=== PATIENT | female | born 1950 | race Caucasian/White ===

== ENCOUNTER → 2017-02-28 | Outpatient (CLI) | payer OTHER ==
[~2017-02-28] MED LIST: CEFTRIAXON1 GM/50 ML IV; DOXYCYCLINE 10100 MG PO; HUMULINU500 SUBQ; KOMBIGLYZE XR1 EAC1 PO; LEVOTHYROXIN0.112 M1 PO; LISINOPRIL-HCT1 EAC1 PO; NEXIUM40 MG PO; PERCOCET 7.5-31 EACH PO; PROBIOTIC1 EAC1 PO; SIMVASTATIN40 MG PO; VANCO 1 GR1 GM/250 M IVPB
== END ==
LOC: RAD 15:44
DX: M19.071 Primary osteoarthritis, right ankle and foot (principal); M20.11 Hallux valgus (acquired), right foot

== ENCOUNTER 2017-03-22 16:39 | Inpatient (IN) | payer OTHER ==
[~2017-03-22] VITALS: Ht 175.3 cm; Wt 138.3 kg
--- NOTE | ~2017-03-22 | O ---
[facility] [place] [address] OPERATIVE REPORT Name: MARISSA RODRIGUEZ Room #: 428-P ADM IN M.R.#: [id number] Admission: 03/22/17 Attend Phys: Destin Duarte MD Discharge: Date of : 48 Report #: [id number] THIS REPORT FOR: //name// CC: Destin Duarte Rafael Almaguer DATE OF SERVICE: 03/24/2017 PREOPERATIVE DIAGNOSIS: Right foot gangrene, great toe. POSTOPERATIVE DIAGNOSIS: Right foot gangrene, great toe. PROCEDURE: Right foot first ray amputation. SURGEON: Destin Duarte MD FINISHING AREA OPERATOR: JOE Olvera ANESTHESIA: General. ESTIMATED BLOOD LOSS: Minimal. DRAINS: Kenia drain placed. TOURNIQUET TIME: 25 minutes. DESCRIPTION OF PROCEDURE: The patient was brought to the operating room where she was placed under general anesthesia. Once under adequate general anesthesia, her right lower extremity was prepped and draped in a sterile manner. Extremity was elevated and tourniquet placed to 300 mmHg. A racquet type incision was then made about the great toe distally. There was abundant purulence which did emanate from the wound and cultures were taken from this. The first metatarsal was then completely exposed sharply with a 10 blade and subsequently a sagittal saw was used to transect the first metatarsal, any soft tissue was sharply and the first ray was then completely removed. The wound was then irrigated copiously and the skin flaps were debrided to good healthy appearing tissue. The wound was irrigated once again copiously and closed with 2-0 nylon suture in a simple stitch manner. This was done over a Kenia drain. The wound was then dressed with Xeroform, 4 x 4s, and sterile soft compressive dressing was placed. Tourniquet was let down approximately 25 minutes. There were no complications from the procedure. The patient tolerated the procedure well and was to the recovery room without incident. <ELECTRONICALLY SIGNED> By: Destin Duarte MD 03/27/17 1041 0815 0844 Destin Duarte MD /nt
--- NOTE | ~2017-03-22 | EKG ---
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 : 1950 Requested By: Destin Duarte Order Number: [id number] MD: Jesu sManuel Ruth Measurements Intervals [place] Rate: 99 P: 34 ME: 136 QRS: -22 QRSD: 95 T: 87 QT: 342 QTc: 439 Interpretive Statements Sinus tachycardia Atrial premature complexes Nonspecific ST segment abnormality No previous ECG available for comparison Electronically Signed On 03-23-2017 12:44:15 CDT by Jesus Manuel Ruth [email or web address] <ELECTRONICALLY SIGNED> By: Jesus Manuel Ruth MD, [facility] 03/23/17 1244 D: [id number] Jesus Manuel Ruth MD, FAC /EPI
--- NOTE | ~2017-03-22 | S ---
[facility] [place] [address] SURGICAL PATH RPT PROCEDURE Name: MARISSA RODRIGUEZ Room #: 428-P ADM IN M.R.#: [id number] Admission: 03/22/17 Date of : 48 Discharge: Report #: [id number] Path Case #: [id number] PATHOLOGY REPORT COLLECTION DATE: 03/24/2017 RECEIVED DATE: 03/24/2017 SUBMITTING PHYS: Dr. Destin Duarte OTHER PHYS: Dr. Rafael Almaguer SPECIMEN(S) RECEIVED: A.Gangrenous right great toe * * * * * * * * * * * * FINAL DIAGNOSIS: Toe, gangrenous right great toe, amputation: - Ulceration along with gangrenous necrosis and abscess formation extending into underlying bone. - Bone at surgical margin showing reactive changes. - Acute inflammation identified within subcutaneous tissue at margin. (IUV:jade; 03/27/2017) PATHOLOGIST: Brianna Oreilly M.D. REPORT ELECTRONICALLY SIGNED BY: Brianna Oreilly M.D. DATE/TIME: 03/27/2017 16:57 * * * * * * * * * * * * GROSS PATHOLOGY: The specimen is received in formalin, labeled "Mitch gangrenous right great toe" and consists of a great toe transected through the mid metatarsal bone that measures 12.4 cm proximaldistal and ranging in diameter from 2.5 cm to 4.0 cm. There is skin present, distally, circumferential, and along the medial aspect of specimen. The dorsal, lateral, and plantar aspect of the specimen is void of skin. The distal dorsal skin is markedly necrotic with a dark brown black mummification artifact. At the medial proximal skin is an elevated and crusted brown lesion that measures 2.2 cm. The distal plantar aspect is scaly with skin sloughing. The necrosis and lesion involve the cutaneous margins. The tendinous tissue overlying the proximal phalanx, dorsally, is necrotic. The dorsal cutaneous margin is inked blue and the plantar block. The transected bone margin is also inked black. Sectioning the crusted lesion, medially reveals marked hyperkeratotic parenchyma. No other lesions or masses are identified. Classroom Instructional Aide sections as follows: A1 dorsal and plantar margins, perpendicular A2 crusted lesion medial proximal toe A3 metatarsal margin, section perpendicular to transection, decaled [address] [place] [address] SURGICAL PATH RPT PROCEDURE Name: MARISSA RODRIGUEZ Room #: 428-P ADM IN M.R.#: [id number] Admission: 03/22/17 Date of : 48 Discharge: Report #: [id number] Path Case #: [id number] (ALIS; 03/24/2017) CLINICAL HISTORY: Gangrene foot INITIAL CPT CODE(S): A; 50951, 30935 Professional services performed by [facility] at [facility] [address] [place] [address] Technical services performed by [facility] at [address] [place] [address], [address], [place] [address]. [facility] [address] [place] [address] PHONE: [phone] DIRECTOR: Jg Barclay M.D. * * * END OF REPORT * * *
--- NOTE | ~2017-03-22 | EKG ---
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 : 1950 Requested By: Destin Duarte Order Number: [id number] MD: Efren Hernandez Measurements Intervals [place] Rate: 90 P: 45 NH: 140 QRS: -19 QRSD: 101 T: 126 QT: 362 QTc: 443 Interpretive Statements Sinus rhythm, APCs Abnormal R-wave progression, early transition LVH with secondary repolarization abnormality Compared to ECG 03/22/2017 17:52:56 Left ventricular hypertrophy now present Early repolarization now present Electronically Signed On 03-25-2017 12:38:38 CDT by Efren Hernandez [email or web address] <ELECTRONICALLY SIGNED> By: Efren Hernandez MD 03/25/17 1238 0648 0648 Efren Hernandez MD /[facility]
--- NOTE | ~2017-03-22 | HC ---
[facility] [place] [address] CONSULTATION Name: MICHAELMARISSA JOHNSON Room #: 428-P [facility] IN M.R.#: [id number] Admission: 03/22/17 Attend Phys: Destin Duarte MD Discharge: Date of : 48 Report #: [id number] THIS REPORT FOR: //name// CC: Destin Etienneal Almaguer DATE OF SERVICE: 03/23/2017 CHIEF COMPLAINT: Gangrene of the right great toe. HISTORY OF PRESENT ILLNESS: This is a 66-year-old female patient with a history of diabetes mellitus. She developed a cellulitis of her foot. She was noted on x-ray to have a metal foreign object, likely a needle, she underwent removal of such needle and has developed progressive infection and necrosis of the right great toe. She is admitted to the hospital for further evaluation and likely will require amputation of the first toe and first metatarsal of the right foot. She has had no prior amputative surgeries. She denies significant pain at this point in time. PAST MEDICAL HISTORY: Positive for diabetes, hypertension, tonsillectomy, gastroesophageal reflux, and peripheral neuropathy. FAMILY HISTORY: Noncontributory. SOCIAL HISTORY: Nonsmoker significant alcohol use. REVIEW OF SYSTEMS: CONSTITUTIONAL: The patient denies fever, chills, or weight loss. NEUROLOGIC: The patient does have numbness related to her neuropathy. Denies focal weakness. ENT: The patient denies earache, nasal drainage, or sore throat. CARDIOVASCULAR: The patient denies chest pain, palpitations, or diaphoresis. PULMONARY: The patient denies cough or shortness of breath. GASTROINTESTINAL: The patient denies nausea, vomiting, diarrhea, or abdominal pain. ORTHOPEDIC: The patient notes necrosis of the right great toe. Denies other pain; however, or swelling. Other systems and 12-point review of systems are negative. PHYSICAL EXAMINATION: VITAL SIGNS: The patient's vital signs at this time include pulse rate 97, blood pressure 151/77, temperature , and respiratory rate of 18. GENERAL: This is a well-developed, well-nourished female patient, appears to be in no distress. HEENT: Head normocephalic. Nose and throat are clear. [address] [address] CONSULTATION Name: MARISSA RODRIGUEZ Room #: 428-P [facility] IN .R.#: [id number] Admission: 03/22/17 Attend Phys: Destin Duarte MD Discharge: Date of : 48 Report #: [id number] NECK: Supple. LUNGS: Clear. HEART: Regular. ABDOMEN: Soft. Bowel sounds present. EXTREMITIES: Examination of the lower extremities demonstrate 2+ edema. She has easily palpable dorsalis pedis and posterior tibialis pulses bilaterally. She has gangrene of the great toe, appears to be some evidence of bony exposure involving the MTP joint medially. The toe itself is cool. The remainder of the foot is warm, pink and dry. LABORATORY DATA: Includes arterial Doppler studies, which showed no flow limiting stenosis in either lower extremity. MRI of the right foot demonstrates soft tissue gas along the great toe with associated fluid and extensor tenosynovitis, septic arthritis of the IP joint, but no evidence of osteomyelitis. Laboratory data includes sodium 130, potassium 3.5, chloride 94, CO2 of 29, BUN 23, creatinine 1.4, glucose 521, and calcium is 8.8. White blood cell count 9.0, the hemoglobin 12.2, hematocrit of 35.7, and platelet count 168,000. Sed rate is 90. CLINICAL IMPRESSION: 1. Gangrene of right great toe, status post removal of metallic foreign body. 2. Diabetes mellitus with peripheral neuropathy. 3. Septic arthritis, right first metatarsophalangeal. RECOMMENDATIONS: At this point in time, I discussed with the patient in detail that I do not feel that the toe is salvageable, it is cool and likely entirely necrotic. She is scheduled for surgical intervention and with which I agree. Her vascularity seems to be normal. She should be able to support healing without too much difficulty. We will continue to follow her postoperative. I appreciate being asked to see her in consultation. <ELECTRONICALLY SIGNED> By: Jericho Gibbs MD 03/24/1722 1 4 Jericho Gibbs MD /nt
--- NOTE | ~2017-03-22 | HC ---
[facility] [place] [address] CONSULTATION Name: MARISSA RODRIGUEZ Room #: 428-P ADM IN M.R.#: [id number] Admission: 03/22/17 Attend Phys: Destin Duarte MD Discharge: Date of : 48 Report #: [id number] THIS REPORT FOR: //name// CC: Destin Almaguer DATE OF SERVICE: 03/23/2017 REASON FOR CONSULTATION: I was asked to evaluate concerning right great toe gangrene. HISTORY OF PRESENT ILLNESS: The patient was a 66-year-old diabetic who has peripheral neuropathy and vasculopathy. She was diagnosed several weeks ago with a foreign body in her right first toe. Infection set in and she was seen by Dr. Duarte who on 03/13/2017 performed incision and extraction of the foreign body. Postoperatively, she has developed increased pain and swelling with discoloration of the distal toe. She has had pain growing up her leg including her calf and medial thigh. Temperature has been up to 100.8 degrees. She has had chills. Some nausea. Blood glucose levels have run high, greater than 400. ALLERGIES: INCLUDE PENICILLIN, SULFA, CODEINE. MEDICATIONS: As noted on her MAR, now on vancomycin, aztreonam pending culture results. PAST MEDICAL HISTORY: Diabetes, hypertension, thyroidectomy, tonsillectomy, gastroesophageal reflux, gastric ulcer, peripheral neuropathy. She has had a previous diagnosis of MRSA, unclear exactly when. FAMILY HISTORY: Noncontributory. SOCIAL HISTORY: Nonsmoker, no significant alcohol intake. REVIEW OF SYSTEMS: No cardiopulmonary, GI or complaints. PHYSICAL EXAMINATION: VITAL SIGNS: The patient was afebrile. Maximum temperature is 100.8 degrees, hemodynamically stable. GENERAL: She was alert and cooperative. HEENT: Unremarkable. CHEST: Clear. HEART: Regular. ABDOMEN: Soft and nontender. EXTREMITIES: Pulses in the groin and popliteal were unremarkable. Pulses in the foot were normal. She had gangrene involving the right first toe with blue [facility] [address] [place] [address] CONSULTATION Name: MICHAELMARISSA ALEX Room #: [facility]- ADM IN M.R.#: [id number] Admission: 03/22/17 Attend Phys: Destin Duarte MD Discharge: Date of : 48 Report #: [id number] discoloration of the distal aspect of the toe. Previous surgical incision was intact. LABORATORY STUDIES: MRI scan showed fluid in the IP joint along with soft tissue fluid and tenosynovitis. Ultrasound of the arterial blood flow, no significant obstruction identified. Creatinine 1.4. Hemoglobin 12, WBC 9, sedimentation rate 90. IMPRESSION: A 66-year-old with diabetic foot infection and gangrene, polymicrobial infection, most likely. Recommend surgical resection with amputation of the toe. Dr. Duarte will determine the extent of the amputation depending upon findings at surgery. She has allergies to multiple antibiotics including penicillin with hives. We will plan to continue with vancomycin and aztreonam pending further microbiology reports. This was discussed with the patient and nursing staff. We will monitor blood glucose and adjust accordingly per family practice recommendations. Anticipate surgery tomorrow. Duration of antibiotics will dependent upon findings at surgery. By: [id number] Guilherme Ring MD /nt
[~2017-03-22 16:39] MED LIST changes: -CEFTRIAXON1 GM/50 ML IV; -VANCO 1 GR1 GM/250 M IVPB
[2017-03-22 17:00] VITALS: BP 129/62
[2017-03-22 18:26] LABS: HEMATOCRIT 35.7 % (37.0-47.0); HEMOGLOBIN 12.2 gm/dL (12.0-15.0); MCH 31.2 pg (26.0-34.0); MCHC 34.2 g/dL (28.0-37.0); MCV 91.3 fL (80.0-100.0); RBC 3.91 mil/uL (4.20-5.00); RDW 12.9 % (10.5-14.5)
[2017-03-22 18:41] LABS: CALCIUM 8.8 mg/dL (8.5-10.1); CREATININE 1.4 mg/dL (0.6-1.0); POTASSIUM 3.5 mmol/L (3.5-5.1)
[2017-03-22 20:18] VITALS: BP 129/54
[2017-03-22 22:01] LABS: URINE BILIRUBIN NEGATIVE (Negative); URINE BLOOD TRACE (Negative); URINE COLOR YELLOW; URINE GLUCOSE-RANDOM* 3+ (Negative); URINE KETONES NEGATIVE (Negative); URINE LEUKOCYTES-REFLEX NEGATIVE (Negative); URINE PROTEIN (DIPSTICK) TRACE (Negative); URINE UROBILINOGEN 0.2 E.U./dl (0.2-1.0)
[2017-03-23 01:02] VITALS: BP 130/57
[2017-03-23 03:54] VITALS: BP 13/60; BP 130/60
[2017-03-23 09:22] VITALS: BP 153/83
[2017-03-23 15:53] VITALS: BP 115/52
[2017-03-23 20:00] VITALS: BP 151/77
[2017-03-24] VITALS (8 sets, daily range): BP systolic 105–147; BP diastolic 49–80
[2017-03-25 04:49] VITALS: BP 127/63
[2017-03-25 06:14] LABS: HEMOGLOBIN 12.1 gm/dL (12.0-15.0)
[2017-03-25 06:15] LABS: HEMATOCRIT 35.9 % (37.0-47.0)
[2017-03-25 06:25] LABS: POTASSIUM 3.2 mmol/L (3.5-5.1)
[2017-03-25 09:20] VITALS: BP 125/69
[2017-03-25 16:30] VITALS: BP 132/65
[2017-03-25 20:00] VITALS: BP 132/60
[2017-03-26 04:00] VITALS: BP 136/66
[2017-03-26 08:00] VITALS: BP 168/78
[2017-03-26 15:24] VITALS: BP 123/64
[2017-03-26 19:17] VITALS: BP 128/77
[2017-03-27 04:07] VITALS: BP 146/74
[2017-03-27 07:30] VITALS: BP 158/87
[2017-03-27 15:30] VITALS: BP 129/58
[2017-03-27 20:00] VITALS: BP 130/53
[2017-03-28 04:00] VITALS: BP 134/65
[2017-03-28 07:30] VITALS: BP 155/78
[2017-03-28] MEDS ORDERED: CEFTRIAXON1 GM/50 ML IV (14:06)
[2017-03-28] MEDS ORDERED: VANCO 1 GR1 GM/250 M IVPB (14:06)
== END 2017-03-28 16:13 | DRG 256 ==
LOC: 4E 16:39
PROVIDERS: Orthopaedic Surgery Foot and Ankle Surgery
PROC: 0Y6P0Z0 Detachment at Right 1st Toe, Complete, Open Approach (ICD-10-PCS; principal; 2017-03-24)
PROC: B548ZZA Ultrasonography of Superior Vena Cava, Guidance (ICD-10-PCS; 2017-03-27)
PROC: 02HV33Z Insertion of Infusion Device into Superior Vena Cava, Percutaneous Approach (ICD-10-PCS; 2017-03-27)
DX: E11.52 Type 2 diabetes mellitus with diabetic peripheral angiopathy with gangrene (principal); N17.9 Acute kidney failure, unspecified; L03.115 Cellulitis of right lower limb; M86.172 Other acute osteomyelitis, left ankle and foot; M00.9 Pyogenic arthritis, unspecified; M86.8X7 Other osteomyelitis, ankle and foot; I10 Essential (primary) hypertension; E78.5 Hyperlipidemia, unspecified; K21.9 Gastro-esophageal reflux disease without esophagitis; B95.62 Methicillin resistant Staphylococcus aureus infection as the cause of diseases classified elsewhere; B96.4 Proteus (mirabilis) (morganii) as the cause of diseases classified elsewhere; E11.42 Type 2 diabetes mellitus with diabetic polyneuropathy; E89.0 Postprocedural hypothyroidism; E87.6 Hypokalemia; I49.9 Cardiac arrhythmia, unspecified; E11.69 Type 2 diabetes mellitus with other specified complication; Z88.0 Allergy status to penicillin; Z88.5 Allergy status to narcotic agent; Z79.4 Long term (current) use of insulin; Z79.899 Other long term (current) drug therapy; Z88.2 Allergy status to sulfonamides; Z82.49 Family history of ischemic heart disease and other diseases of the circulatory system
CPT/HCPCS: 10183; 10783; 27000; 50010; 50101; 50386; 56527; 57091; 62110; 62900; 70005

== ENCOUNTER → 2017-06-29 | Outpatient (CLI) | payer OTHER ==
[~2017-06-29] MED LIST changes: +CEFTRIAXON1 GM/50 ML IV; +VANCO 1 GR1 GM/250 M IVPB
== END ==
LOC: HYPER 06:37
DX: T87.89 Other complications of amputation stump (principal); E11.621 Type 2 diabetes mellitus with foot ulcer; L97.512 Non-pressure chronic ulcer of other part of right foot with fat layer exposed; E78.5 Hyperlipidemia, unspecified; I10 Essential (primary) hypertension; K21.9 Gastro-esophageal reflux disease without esophagitis; E66.9 Obesity, unspecified; Z68.42 Body mass index [BMI] 45.0-49.9, adult; Z85.9 Personal history of malignant neoplasm, unspecified; Z86.14 Personal history of Methicillin resistant Staphylococcus aureus infection; Z87.891 Personal history of nicotine dependence; Z72.89 Other problems related to lifestyle; Y83.5 Amputation of limb(s) as the cause of abnormal reaction of the patient, or of later complication, without mention of misadventure at the time of the procedure

== ENCOUNTER → 2017-07-20 | Outpatient (CLI) | payer OTHER | LOC: HYPER 06:44 | DX: T87.81 Dehiscence of amputation stump (principal); E11.621 Type 2 diabetes mellitus with foot ulcer; L97.512 Non-pressure chronic ulcer of other part of right foot with fat layer exposed; I10 Essential (primary) hypertension; E78.5 Hyperlipidemia, unspecified; K21.9 Gastro-esophageal reflux disease without esophagitis; E66.9 Obesity, unspecified; Z68.42 Body mass index [BMI] 45.0-49.9, adult; Z85.9 Personal history of malignant neoplasm, unspecified; Z86.14 Personal history of Methicillin resistant Staphylococcus aureus infection; Z89.411 Acquired absence of right great toe; Z87.891 Personal history of nicotine dependence; Z72.89 Other problems related to lifestyle; Y83.5 Amputation of limb(s) as the cause of abnormal reaction of the patient, or of later complication, without mention of misadventure at the time of the procedure ==

== ENCOUNTER → 2017-08-03 | Outpatient (CLI) | payer OTHER | LOC: HYPER 06:31 | DX: T87.81 Dehiscence of amputation stump (principal); E11.621 Type 2 diabetes mellitus with foot ulcer; L97.512 Non-pressure chronic ulcer of other part of right foot with fat layer exposed; E66.9 Obesity, unspecified; Z68.42 Body mass index [BMI] 45.0-49.9, adult; L03.116 Cellulitis of left lower limb; E78.5 Hyperlipidemia, unspecified; I10 Essential (primary) hypertension; K21.9 Gastro-esophageal reflux disease without esophagitis; Z87.891 Personal history of nicotine dependence; Z72.89 Other problems related to lifestyle; Y83.5 Amputation of limb(s) as the cause of abnormal reaction of the patient, or of later complication, without mention of misadventure at the time of the procedure ==

== ENCOUNTER → 2017-08-29 | Outpatient (CLI) | payer OTHER | LOC: HYPER 08-24 08:56 | DX: T87.81 Dehiscence of amputation stump (principal); E11.621 Type 2 diabetes mellitus with foot ulcer; L97.512 Non-pressure chronic ulcer of other part of right foot with fat layer exposed; E66.9 Obesity, unspecified; Z68.42 Body mass index [BMI] 45.0-49.9, adult; E78.5 Hyperlipidemia, unspecified; K21.9 Gastro-esophageal reflux disease without esophagitis; Z85.828 Personal history of other malignant neoplasm of skin; Z87.891 Personal history of nicotine dependence; Y83.5 Amputation of limb(s) as the cause of abnormal reaction of the patient, or of later complication, without mention of misadventure at the time of the procedure ==

== ENCOUNTER → 2019-07-04 | Outpatient (CLI) | payer OTHER | LOC: ULTRA 09:19 | DX: K76.0 Fatty (change of) liver, not elsewhere classified (principal) ==

== ENCOUNTER → 2019-08-12 | Outpatient (CLI) | payer OTHER ==
[~2019-08-12] VITALS: Ht 177.8 cm; Wt 156.5 kg
[~2019-08-12] MED LIST changes: +HUMALOG100 UNIT/1 SUBQ; +LANTUS SOL100 UNIT/1 SUBQ; +LEVOXYL150 MCG PO; +OMEPRAZOLE 20 M20 M1 PO
--- NOTE | 2019-08-13 16:07 | PATH ---
[facility] [place] [address] [place] [address] PATHOLOGY RPT PROCEDURE Name: MARISSA RODRIGUEZ Room #: REG [facility] Tu.#: [id number] Admission: 08/12/19 Date of : 48 Discharge: Report #: [id number] Path Case #: [id number] [facility] Accession Number: [id number] . 01 Material submitted: . PART A: stomach - RANDOM GASTRIC BX'S PART B: stomach - GASTRIC POLYPS PART C: cecum - POLYP AT CECUM PART D: colon - POLYP AT ASCENDING COLON. Modifiers: ascending PART E: colon - POLYP AT TRANSVERSE COLON X2. Modifiers: transverse PART F: sigmoid colon - POLYP AT SIGMOID COLON X5 . 01 Clinical history: . Pre-OP DX: Abdominal pain Post-OP DX: Hiatal hernia, gastric polyps, colon polyps . 02 Diagnosis: A. Gastric mucosa, random gastric to rule out H. pylori, endoscopic biopsy: - Mild chronic gastritis with features of reactive gastropathy. - Negative for intestinal metaplasia or atrophy. - Negative for Helicobacter pylori (properly controlled immunohistochemical stain performed). . B. Polyps, gastric polyps, endoscopic biopsy: - Fundic gland polyps. - Negative for dysplasia. . C. Polyp, at cecum, endoscopic biopsy: - Tubular adenoma. - Negative for high-grade dysplasia. . D. Polyp, at ascending colon, endoscopic biopsy: - Tubular adenoma. - Negative for high-grade dysplasia. . E. Polyp x2, at transverse colon, endoscopic biopsy: - Tubular adenoma identified in multiple fragments. - Negative for high-grade dysplasia. . F. Polyps x5, at sigmoid colon, endoscopic biopsy: - Tubular adenoma identified in multiple fragments without high-grade dysplasia. - Hyperplastic polyp identified in 2 fragments without dysplasia. . (IUV:hat block bench hand; 08/13/2019) MBR 08/13/[address] [address] PATHOLOGY RPT PROCEDURE Name: MARISSA RODRIGUEZ Room #: REG CLI M.#: [id number] Admission: 08/12/19 Date of : 48 Discharge: Report #: [id number] Path Case #: [id number] . 02 Electronically signed: . Brianna Oreilly MD, Pathologist NPI- [id number] . 01 Gross description: . A. Received in formalin labeled "Marissa Rodriguez random gastric BX's," and additionally labeled on the requisition as "to rule out H. pylori," are 5 segments of gonzalez soft tissue measuring 1.5 x 0.9 x 0.3 cm in aggregate dimensions and ranging from 0.3 to 0.6 cm in maximum dimension. The specimen is submitted entirely in cassette A1. . B. Received in formalin labeled "Marissa Rodriguez, gastric polyps," are 2 segments of gonzalez soft tissue measuring 1.0 x 0.3 x 0.2 cm in aggregate dimensions and ranging from 0.4 to 0.6 cm in maximum dimension. The specimen is submitted entirely in cassette B1. . C. Received in formalin labeled "Marissa Rodriguez, polyp at cecum," is a 0.9 x 0.5 x 0.5 cm polypoid piece of gonzalez soft tissue with a stalk measuring 0.7 cm in length and 0.5 cm in diameter. The margin of the stalk is inked and the tissue is sectioned perpendicular to the margin and submitted entirely in cassette C1. . D. Received in formalin labeled "Marissa Rodriguez, polyp at ascending colon," is a single segment of gonzalez soft tissue measuring 0.5 cm in maximum dimension. The specimen is entirely submitted in cassette D1. . E. Received in formalin labeled "Marissa Rodriguez, polyp at transverse colon," and additionally labeled on the requisition as "x2," are 5 segments of gonzalez soft tissue measuring 2.5 x 1.2 x 0.3 cm in aggregate dimensions and ranging from 0.2 to 2.3 cm in maximum dimension. The specimen is submitted entirely in cassette E1. . F. Received in formalin labeled "Marissa Rodriguez, polyp at sigmoid colon," and additionally labeled on the requisition as "x5," are multiple segments of gonzalez soft tissue measuring 2.0 x 1.1 x 0.2 cm in aggregate dimensions. The specimen is filtered and entirely submitted in cassette F1. (TSD; 08/12/2019) TOB/TOB 08/12/2019 1944 Local . 02 Pathologist provided ICD-10: K29.50, K31.9, K31.7, D12.0, D12.2, D12.3, D12.5, K63.5 . 02 CPT . 845805, 615545, 515653, 454721, 884448, 806865, Y08106 Specimen Comment: A courtesy copy of this report has been sent to [phone], [phone] [address] [place] [address] PATHOLOGY RPT PROCEDURE Name: MICHAELMARISSAJANA JOHNSON Room #: REG [facility] M.Miriam.#: [id number] Admission: 08/12/19 Date of : 48 Discharge: Report #: [id number] Path Case #: [id number] Specimen Comment: [id number] Specimen Comment: Report sent to / DR OWENS Performed at: 01 [facility] [address], [place], [place] [id number] MD Elio Li MD Phone: [phone] Performed at: 02 [facility] [place], [place] [address] MD Brianna Oreilly MD Phone: [phone]
== END ==
LOC: GI 00:01
DX: Z12.11 Encounter for screening for malignant neoplasm of colon (principal); D12.0 Benign neoplasm of cecum; D12.2 Benign neoplasm of ascending colon; D12.3 Benign neoplasm of transverse colon; D12.5 Benign neoplasm of sigmoid colon; K57.30 Diverticulosis of large intestine without perforation or abscess without bleeding; R10.13 Epigastric pain; K64.8 Other hemorrhoids; K29.50 Unspecified chronic gastritis without bleeding; K31.9 Disease of stomach and duodenum, unspecified; K31.7 Polyp of stomach and duodenum; K21.9 Gastro-esophageal reflux disease without esophagitis; K44.9 Diaphragmatic hernia without obstruction or gangrene; I10 Essential (primary) hypertension; E78.00 Pure hypercholesterolemia, unspecified; E11.9 Type 2 diabetes mellitus without complications; E07.9 Disorder of thyroid, unspecified; G62.9 Polyneuropathy, unspecified; Z98.890 Other specified postprocedural states; Z79.899 Other long term (current) drug therapy; Z88.2 Allergy status to sulfonamides; Z87.19 Personal history of other diseases of the digestive system; Z88.0 Allergy status to penicillin; Z88.6 Allergy status to analgesic agent; Z87.891 Personal history of nicotine dependence; Z85.828 Personal history of other malignant neoplasm of skin; Z79.4 Long term (current) use of insulin
CPT/HCPCS: 62110; 62900

== ENCOUNTER 2020-08-21 05:18 | Inpatient (IN) | payer OTHER ==
[~2020-08-21] VITALS: Ht 177.8 cm; Wt 148.0 kg
--- NOTE | ~2020-08-21 | EMS ---
[facility] [address] [place] [address] EMS Patient Care Report Name: MARISSA RODRIGUEZ Room #: 170-6 ADM IN M.R.#: [id number] Admission: 08/21/20 Attend Phys: Rafael Almaguer MD Discharge: Date of : 48 Report #: [id number] THIS REPORT FOR: //name// Report Transmitted: 08/21/2020 09:42 EMS Care Summary [place], [place]/[facility] Incident [id number] @ 08/21/2020 04:40 Incident Location [address] [place] [id number] Patient MARISSA RODRIGUEZ Female, 69 Years 1950 Patient Address Patient History Morbid Obesity,Pressure Ulcer, Patient Allergies Penicillin allergy,Sulfa, Patient Medications Insulin, Chief Complaint INCREASING WEAKNESS Disposition Transported No Lights/[place] Dispatch Reason Falls Transported To [facility] Narrative M36 DISPATCHED ON A FALL. M36 ARRIVED TO SCENE TO FIND P36 AT PT SIDE. PT STATED PRIOR FALL ONE MONTH PRIOR. PT STATED INCREASING WEAKNESS CHIEF COMPLAINT. PT DENIED NECK AND BACK PAIN. PT DENIED LOSS OF CONSCIOUSNESS. PT STATED SHE "MAY HAVE HIT MY HEAD A LITTLE, BUT IT DOES NOT HURT." PT STATED ONLY PAIN COMPLAINT TODAY LOCATED IN TAILBONE FROM PRIOR FALL ONE MONTH AGO. PT [facility] [address] [place] [address] EMS Patient Care Report Name: MARISSA RODRIGUEZ Room #: 170-6 ADM IN [facility].#: [id number] Admission: 08/21/20 Attend Phys: Rafael Almaguer MD Discharge: Date of : 48 Report #: [id number] STATED RIGHT FOOT "UNDER CARE FOR A BLISTER." PT STATED WOUND ON RIGHT FOOT "WRAPS AROUND FROM THE BACK OF THE HEEL AND JUST WILL NOT SEEM TO HEAL." PT DENIED FEVER, COUGH, NAUSEA AND VOMITING. PT STATED SHE "HAS BEEN STRUGGLING WITH DIARRHEA." PT STATED HISTORY OF DIABETES. PT STATED "IT HAS BEEN QUITE A WHILE SINCE I CHECKED MY SUGAR." PT STATED "I AM JUST TIRED OF POKING MY FINGER ALL THE TIME." PT GLUCOSE READING IN AMBULANCE READ HIGH. PT ASSISTED TO STAND BY FIRE. PT SAT ON STRETCHER AND SECURED WITH SEATBELTS AND BLANKET. PT VS MONITORED EN ROUTE. PT REPORT GIVEN. PT MOVED TO HOSPITAL BED VIA FOUR PERSON SHEET LIFT. PT CARE AND BELONGINGS TRANSFERRED TO ER STAFF AT [facility] WITHOUT INCIDENT. M36 PLACED BACK IN SERVICE. Initial Vitals @05:02P: 96,R: 20,BP: 152/112,Pain: 8/10,GCS: 15,Glucose: -2,CO: 0,SpO2: 98,Revised Trauma: 12, @04:57P: 100,R: 20,BP: 170/94,Pain: 8/10,GCS: 15,CO: 0,SpO2: 99,Revised Trauma: 12, Assessments @04:55MENTAL:Person Oriented,Time Oriented,Place Oriented,Event Oriented,SKIN:Pale,HEENT:Head/Face: Other,LUNG SOUNDS:General: Diarrhea,ABDOMEN:General: Diarrhea,PELVIS//GI:Incontinence,EXTREMITIES:Left Leg: Weakness,Right Leg: Weakness,Right Leg: Other,Left Leg: Other,PULSE:Radial: 2+ Normal,NEURO: Impression Generalized Weakness Timeline 04:18,Call Received 04:18,Dispatch Notified 04:40,Dispatched 04:41,En Route 04:44,On Scene 04:45,At Patient 04:57,BP: 170/94 M,PULSE: 100,RR: 20 R,SPO2: 99 Ox,ETCO2: ,BG: ,PAIN: 8,GCS: 15, 05:02,BP: 152/112 M,PULSE: 96,RR: 20 R,SPO2: 98 Ox,ETCO2: ,BG: -2,PAIN: 8,GCS: 15, 05:04,Depart Scene 05:13,At Destination 05:29,Call Closed Disclaimer v1.1 Copyright 2020 [employer] [place] [address] EMS Patient Care Report Name: MARISSA RODRIGUEZ Room #: 170-6 ADM IN ..#: [id number] Admission: 08/21/20 Attend Phys: Rafael Almaguer MD Discharge: Date of : 48 Report #: [id number] This EMS Care Summary contains data elements from the applicable legal record (which may be displayed differently). It is designed to provide pertinent information for the following purposes: continuity of care, clinical quality, and state data reporting. The complete legal record is available to ED staff and administrators of the receiving hospital in ES's Patient Tracker. All data is provided "as is."
[2020-08-21 05:19] VITALS: BP 183/68
[2020-08-21 06:01] LABS: ABSOLUTE NEUTROPHILS 8.7 thou/uL (1.4-8.2); BASOPHILS 0.7 % (0.0-2.0); EOSINOPHILS 0.3 % (0.0-3.0); HEMATOCRIT 36.6 % (37.0-47.0); HEMOGLOBIN 12.2 gm/dL (12.0-15.0); MCH 31.5 pg (26.0-34.0); MCHC 33.2 g/dL (28.0-37.0); MCV 94.6 fL (80.0-100.0); PLATELET COUNT 203 thou/uL (150-400); RBC 3.87 mil/uL (4.20-5.00); RDW 13.7 % (10.5-14.5); WBC 10.4 thou/uL (4.0-11.0)
[2020-08-21] MEDS ORDERED: DOXYCYCLINE (06:37)
[2020-08-21 06:44] LABS: ALBUMIN 3.2 g/dL (3.4-5.0); ANION GAP 20 mmol/L (7-16); BUN 52 mg/dL (7-18); CALCIUM 9.3 mg/dL (8.5-10.1); CHLORIDE 94 mmol/L (98-107); CO2 16 mmol/L (21-32); CREATININE 2.1 mg/dL (0.6-1.0); POTASSIUM 4.3 mmol/L (3.5-5.1); SGOT 15 U/L (15-37); SGPT 15 U/L (14-59); SODIUM 130 mmol/L (136-145); TOTAL BILIRUBIN 0.6 mg/dL (0.2-1.0); TROPONIN-I <0.06 ng/mL (<0.06)
[2020-08-21 06:46] LABS: GLUCOSE 543 mg/dL (74-106)
[2020-08-21 06:57] LABS: URINE BILIRUBIN NEGATIVE (Negative); URINE BLOOD 3+ (Negative); URINE COLOR YELLOW; URINE GLUCOSE-RANDOM* 3+ (Negative); URINE KETONES TRACE (Negative); URINE PROTEIN (DIPSTICK) 2+ (Negative); URINE UROBILINOGEN 0.2 E.U./dl (0.2-1.0)
[2020-08-21 06:59] LABS: URINE CLARITY CLOUDY; URINE LEUKOCYTES-REFLEX 1+ (Negative); URINE NITRITE-REFLEX POSITIVE (Negative)
--- NOTE | 2020-08-21 07:16 | EKG ---
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: : 1950 Requested By: Sayra Monterroso Order Number: [id number] MD: Roc Quiros Measurements Intervals [place] Rate: 94 P: FL: QRS: -15 QRSD: 80 T: 6 QT: 428 QTc: 536 Interpretive Statements Significant Artifact, suspect AFIB Borderline left axis deviation Abnormal R-wave progression, early transition Borderline T wave abnormalities Prolonged QT interval Compared to ECG 03/24/2017 06:48:48 T-wave abnormality now present Prolonged QT interval now present Left ventricular hypertrophy no longer present Early repolarization no longer present Electronically Signed On 08-21-2020 7:16:42 PAID SEARCH MARKETING STRATEGIST by Roc Quiros [email or web address] <ELECTRONICALLY SIGNED> By: Roc Quiros MD, [facility] 08/21/20 0716 1 1 Roc Quiros MD, [facility] /EPI
[2020-08-21 07:36] LABS: CASTS None Seen /LPF (None Seen); SQUAMOUS >10 Many /LPF (0-3)
[2020-08-21 07:37] LABS: AMORPHOUS PHOSPHATES Few /LPF (None Seen); BACTERIA-REFLEX >30 Many /HPF (None Seen); URINE RBC 3-10 Few /HPF (0-2); URINE WBC-REFLEX 0-5 Rare /HPF (0-5)
[2020-08-21 07:56] LABS: BE(vivo) -7.8 mmol/L (-2 to +3); HCO3 18.1 mmol/L (22.0-26.0); PCO2 VENOUS 38.7 mmHg (41.0-51.0); PO2 VENOUS 36.6 mmHg (35.0-45.0)
[2020-08-21 15:51] VITALS: BP 124/42
[2020-08-21 15:54] VITALS: BP 138/52
--- NOTE | 2020-08-21 16:04 | NUR ---
CALLED TO GIVE REPORT ON PT. NO ANSWER, INFORMED CHARGE ANA MANUEL
--- NOTE | 2020-08-21 17:22 | NUR ---
ASSUMING CARE OF PATIENT NOW. PATIENT ARRIVED TO UNIT FROM ER W SPECIMEN TRANSPORTER. PATIENT IS ALERT AND ORIENTED AND APPEARS TO MAKE NEEDS KNOWN. VITALS ARE STABLE AND O2 SAT IS STABLE ON ROOM AIR. EDUCATION AND HX. DOCUMENTED BELONGINGS. PATIENT GIVEN ADMISSION PACKET AND ORIENTED TO ROOM. CALL LIGHT WITHIN REACH. BED ALARM ON. WILL ENDORSE TO STUART PEREZ.
--- NOTE | 2020-08-21 20:00 | NUR ---
Pt. was admitted to the unit from the emergency room on day shift around 1800. She is currently resting in bed and admission assessment and history is com- pleted. Bed alarm is on.
[2020-08-21 20:15] VITALS: BP 149/54
[2020-08-22 04:58] LABS: HEMATOCRIT 34.9 % (37.0-47.0); HEMOGLOBIN 11.6 gm/dL (12.0-15.0); MCH 31.4 pg (26.0-34.0); MCHC 33.3 g/dL (28.0-37.0); MCV 94.2 fL (80.0-100.0); RBC 3.71 mil/uL (4.20-5.00); RDW 13.8 % (10.5-14.5); WBC 6.8 thou/uL (4.0-11.0)
[2020-08-22 05:15] LABS: CREATININE 1.6 mg/dL (0.6-1.0); POTASSIUM 4.2 mmol/L (3.5-5.1)
--- NOTE | 2020-08-22 07:01 | NUR ---
Pt. rested quietly at intervals during the night when checked on during frequent rounds. Po pain meds given for c/o pain (see emar) with some relief noted. Pt. has had a moderate amount of dried blood in her antwon area. Antwon care was given. Pt. informed this nurse that this was not unusual due to her hormone therapy. Will continue to monitor. Bed alarm is on.
[2020-08-22 08:37] VITALS: BP 156/80
--- NOTE | 2020-08-22 11:55 | NUR ---
Received awake on bed. Due medications given as prescribed, able to swallow meds w/o difficulty. On room air. Vital signs stable. On MS, not on telemetry; no complains and signs of chest pain, crushing sensation and heaviness. On carb controlled diet- tolerating well; no nausea, no vomiting and no abdominal pain. Assisted in ADLs. On hernandez in place; draining well; output measured and recorded accordingly. With NS at 100cc/hr, infusing well at L AC- on IV antibiotics. With multiple wounds- dressing in place; wound physician and city wellness coordinator consult made by production proofreader nurse. Falls bundle in place. Complained of pain, due PRN pain meds given as prescribed. Lab called: positive blood culture; gram positive cocci- Dr Almaguer informed; rounded on patient as well. To continue monitoring patient.
[2020-08-22 15:34] VITALS: BP 130/64
[2020-08-22 20:28] VITALS: BP 156/72
--- NOTE | 2020-08-23 03:32 | NUR ---
PT IS A/O X4 AND IS UP WITH ASSIST. CASTRO IN PLACE AND DRAINING DARK YELLOW URINE. C/O PAIN. PRN PAIN MEDICATION GIVEN DIRECTED. DRSGS TO WOUND ARE C/D/I.FALL PRECAUTIONS IN PLACE,CALL LIGHT IS WITHIN REACH.
[2020-08-23 03:54] VITALS: BP 130/59
[2020-08-23 08:27] VITALS: BP 151/72
[2020-08-23 10:07] LABS: CREATININE 1.3 mg/dL (0.6-1.0); POTASSIUM 3.9 mmol/L (3.5-5.1)
[2020-08-23 10:08] LABS: CALCIUM 8.9 mg/dL (8.5-10.1)
--- NOTE | 2020-08-23 11:11 | HC ---
[facility] [place] [address] CONSULTATION Name: MARISSA RODRIGUEZ Room #: 463-P ADM IN M.R.#: [id number] Admission: 08/21/20 Attend Phys: Rafael Almaguer MD Discharge: Date of : 48 Report #: [id number] THIS REPORT FOR: cc: Rafael Almaguer MD, Neal A. MD Jetmore, Allen B. MD ~ DATE OF SERVICE: 08/22/2020 WOUND CARE CONSULTATION NOTE LOCATION: [facility] REASON FOR CONSULTATION: Necrotic ulcer of right foot in a morbidly obese patient with diabetes mellitus type 2 and lymphedema. HISTORY OF PRESENT ILLNESS: The patient is a 69-year-old woman well known to the Wound Care Clinic at [facility] for care of diabetic foot ulcer. She has a history of morbid obesity and lymphedema. The patient is admitted to the Emergency Room after a fall at home. She ambulates with a walker. She took a fall and was admitted. We are consulted due to concern over her right heel ulcer, which is foul smelling. PAST MEDICAL HISTORY: 1. Diabetes mellitus type 2. 2. Lymphedema. 3. Morbid obesity. 4. Bilateral deep vein thrombosis documented by venous ultrasound this admission. 5. 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 ALLERGIES: PENICILLIN, SULFA. LABORATORY DATA: White blood count 10.4, albumin 3.2. PHYSICAL EXAMINATION: GENERAL: Shows an alert, pleasant, conversant, morbidly obese, elderly woman. HEENT: Mucous membranes are moist. VITAL SIGNS: She is afebrile. ABDOMEN: Obese. LUNGS: Respirations are unlabored. EXTREMITIES: Shows lymphedema of both lower extremities with chronic lipedema. Examination of the right foot shows the plantar surface of the right heel, a dense callus. Underneath the callus, there is a 2 x 2.5 cm black necrotic area, which is foul smelling. [facility] [address] [place] [address] CONSULTATION Name: MARISSA RODRIGUEZ Room #: 463-P [facility] IN [facility].#: [id number] Admission: 08/21/20 Attend Phys: Rafael Almaguer MD Discharge: Date of : 48 Report #: [id number] IMPRESSION: 1. Morbid obesity. 2. Immobility, admitted with a fall. 3. Bilateral deep vein thrombosis. 4. Lymphedema. 5. Diabetes mellitus type 2 with foot ulcer. 6. Moderate protein-calorie malnutrition. 7. Necrotic plantar ulcer of right foot with foul smelling, will require surgical debridement. PLAN: We will consult a surgeon. Quarter strength Dakin's dressings to the wound twice daily, IV Levaquin. Right heel wound will require surgical debridement. <ELECTRONICALLY SIGNED> By: Jabari Julian MD 08/23/20 1111 1309 1330 Jabari Julian MD /nt
[2020-08-23 11:12] LABS: HEMATOCRIT 33.7 % (37.0-47.0); HEMOGLOBIN 11.3 gm/dL (12.0-15.0); MCH 31.8 pg (26.0-34.0); MCHC 33.4 g/dL (28.0-37.0); MCV 95.1 fL (80.0-100.0); RBC 3.55 mil/uL (4.20-5.00); WBC 7.1 thou/uL (4.0-11.0)
--- NOTE | 2020-08-23 17:14 | NUR ---
PT A&OX4, VSS, PAIN IN LEFT FOOT. PATIENT REPOSITIONED. DOCTOR DID WOUND CARE ON FOOT. OTHER WOUND CARE COMPLETED. NO SIGNS OF DISTRESS. WILL CONTINUE TO MONITOR.
[2020-08-23 19:22] VITALS: BP 131/62
--- NOTE | 2020-08-24 03:27 | NUR ---
PT IS A/O X4 AND IS UP WITH ASSISTANCE. ROOM AIR. VSS. AFEBRILE. BED BATH GIVEN. CASTRO IN PLACE AND DRAINING DARK YELLOW URINE. C/O PAIN. PRN PAIN MEDICATIONS GIVEN DIRECTED. DRSG TO RIGHT HEEL IS C/D/I AND REMAINS FLOATING OVER PILLOW TO RELIEVE ADDED PRESSURE. FALL PRECAUTIONS IMPLEMENTED, CALL LIGHT IS WITHIN REACH. WILL CONTINUE TO MONITOR.
[2020-08-24 10:14] VITALS: BP 173/70
--- NOTE | 2020-08-24 10:15 | NUR ---
chart review, consult for dcp. cm visited with rohan at bedside, cm cont to wear face mask and shield during visit. ot had just made visit and bedside in room as well. intro to cm, hh and snf. "live alone in apartment have elevator, if broken have to do the stairs. independent when feeling ok. use to be able to cook. hard to cook now. have walker, shower chair. no longer able to drive. this 1st amp of toes i had. have had falls and this time my cousin was not able to help and will no longer be able to help me. he had recent loss. no hh in past but been to rehab in past and will not go back there. can not remember the place was at. i could go to another rehab facility. thank you"/rohan. she riley to go for debri of right heel wound today. will cont following as needed for dc needs.
[2020-08-24 11:10] VITALS: BP 154/62
--- NOTE | 2020-08-24 12:09 | HC ---
[facility] [place] [address] CONSULTATION Name: MARISSA RODRIGUEZ Room #: 463-P ADM IN M.R.#: [id number] Admission: 08/21/20 Attend Phys: Rafael Almaguer MD Discharge: Date of : 48 Report #: [id number] THIS REPORT FOR: cc: Rafael Almaguer MD, Neal A. MD Kneidel,Destin Jordan MD ~ DATE OF SERVICE: 08/23/2020 CHIEF COMPLAINT: Right heel ulcer. HISTORY OF PRESENT ILLNESS: This is a 69-year-old female with a history of diabetes, which has been uncontrolled. She apparently fell and was seen in the Emergency Room and was admitted and noted to have a plantar heel wound. Wound care saw the patient and Orthopedics was consulted for management. She has no x-ray or MRI to evaluate this. 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 ALLERGIES: ADHESIVES, PENICILLIN, SULFAS, CODEINE. LABORATORY STUDIES: Glucose on admission was 543. White count 10.4, hemoglobin 12.2, hematocrit 36.6. COVID test was negative. Again, no x-rays or MRI of her foot. PAST MEDICAL HISTORY: Significant for diabetes, hypertension, thyroid, tonsillectomy, gastroesophageal reflux disease, bilateral peripheral neuropathy, hyperlipidemia, hypothyroidism, MRSA in 2017. REVIEW OF SYSTEMS: As above. PHYSICAL EXAMINATION: Notes an obese patient with on her right lower extremity a plantar foot wound beneath her heel. It is malodorous. There is a central deep eschar which is noted. IMPRESSION: Diabetic heel ulcer, necrotic. PLAN: Would be to proceed with x-rays and an MRI scan to evaluate the heel and [address] [address] CONSULTATION Name: MICHAELMARISSAJANA JOHNSON Room #: 463-P ADM IN ..#: [id number] Admission: 08/21/20 Attend Phys: Rafael Almaguer MD Discharge: Date of : 48 Report #: [id number] wound further. We will follow along with you. She will likely need a debridement and/or a partial calcanectomy pending the results. <ELECTRONICALLY SIGNED> By: Destin Duarte MD 08/24/20 1209 0850 0958 Destin Duarte MD /nt
--- NOTE | 2020-08-24 14:20 | NUR ---
Received awake on bed. Due medications given as prescribed. On nothing per orem, pt informed and aware; possible debridemnt of R heel today. On MS, not on telemetry; no complains and signs of chest pain, crushing sensation and heaviness. Assisted in ADLs. On room air. Vital signs stable; with BP elevation noted; BP medication given as prescribed with sips of water and BP rechecked afterwards- WNL. No nausea, no vomiting and no abdominal pain noted. On blood sugar monitoring, taken and recorded accordingly. With SL at L AC- on IV antibiotics. With multiple wounds on LE- dressing in place. Pt turned on her sides. Falls bundle in place. Pt went down via stretcher for MRI, tolerated procedure well; back to room safely. With orders from Dr Duarte, pt for debridement tomorrow AM- pt informed and aware; Dr Almaguer informed as well. Pt's diet resumed for lunch, tolerated well; no nausea, no vomiting and no abdominal pain noted afterwards. To continue monitoring patient.
[2020-08-24 15:57] VITALS: BP 154/70
[2020-08-24 20:34] VITALS: BP 126/62
--- NOTE | 2020-08-25 07:46 | NUR ---
Assumed pt care at 1900. A/OX4,VSS. C/o pain to sacrum,medicated per EMAR with relief reported. Pt did c/o of heartburn, notified,gave orders for Protonix 40mgx1, Pt medicated with no further c/o heartburn. Pt has been NPO since midnight for debridement of right heel today. Landry in place DD with yellow urine. Fall precautions in place,calls approp for help.Resting quietly at this time w/o any distress noted.
[2020-08-25 08:41] VITALS: BP 137/76
[2020-08-25 12:32] VITALS: BP 158/62
[2020-08-25 13:45] VITALS: BP 146/60
[2020-08-25 14:00] VITALS: BP 137/65
[2020-08-25 14:33] VITALS: BP 138/60
[2020-08-25 20:00] VITALS: BP 140/63
--- NOTE | 2020-08-25 20:00 | NUR ---
PATIENT A&OX4, VSS, PAIN IN FOOT. PATIENT HAD I&D DONE TODAY, OTHER WOUND CARES COMPLETED. PATIENT TOLERATING DIET. LOVENOX HELD BEFORE PROCEDURE. PATIENT HELPS WITH TURNS. NO SIGNS OF DISTRESS. WILL CONTIUE TO MONITOR.
--- NOTE | 2020-08-26 03:25 | NUR ---
ASSUMED PT CARE AT SHIFT CHANGE. PT IS A&OX4. VSS. PT DENIES N/V/D. PT STATES THAT SHE IS IN PAIN. ORAL PAIN MEDICATION ADMINISTERED WITH SCHEDULED MEDS. PT TOLLERATES MEDICATION. Q2 TURNS DONE N PT. PT IS NOW RESTING IN HER ROOM. PT MAKES NEEDS KNOWN. HOURLY ROUNDING DONE. WILL CONTINUE TO MONITOR.
[2020-08-26 08:00] VITALS: BP 133/59
--- NOTE | 2020-08-26 12:08 | NUR ---
PT HAD I&D R HEEL YESTERDAY. PT TO BE NWB RLE FOR SOME TIME. GRACIELA ASKED THAT 5N ASSESS FOR POST ACUTE CARE STAY. 5N ASSESSED AND INDICATED THAT SKILLED IS MORE APPROPRIATE. CM MET WITH PT AT BEDSIDE AND ASKED IF SHE HAD DETERMINED WHERE SHE WANTED REFERRALS SENT FROR REVIEW FROM [facility] LIST. PT INDICATED SHE HADN'T LOOKED AT IT SHE WAS WAITING TO SPEAK WITH HER COUSIN ABOUT IT. CM ASKED THAT SHE SELECT THREE PLACES BY LATER THIS AFTERNOON. CM TO FOLLOW INDICATED WITH DC PLANNING.
--- NOTE | 2020-08-26 14:03 | NUR ---
Received awake on bed. Due medications given as prescribed, able to swallow meds w/o difficulty. On room air. Vital signs stable. On MS, not on telemetry; no complains and signs of chest pain, crushing sensation and heaviness. On carb controlled diet- tolerating well; no nausea, no vomiting and no abdominal pain noted. On blood sugar monitoring, taken and recorded accordingly; with sliding scale insulin ordered, given as prescribed. With SL at L AC- intact and flushing well. With hernandez in place, draining well; output measured and recorded accordingly. POD 1, R heel debridement; dressing in place, C/D/I. Falls bundle in place. Pt repositioned from time to time, may refuse at times despite explanation. Assisted in ADLs. Complained of pain, due PRN pain meds given as prescribed. Visited by her cousin this PM, update given. Pt seen and examined by Dr Almaguer this AM, possible discharge to rehab- for consult to Dr Curtis- 5N liason and CM informed; pt updated as well. To continue monitoring patient. Pt seen and examined by Dr Curtis- pt not qualified to be in 5N as of now, CM aware.
[2020-08-26 16:08] VITALS: BP 133/57
--- NOTE | 2020-08-26 16:46 | NUR ---
FAXED REFERRAL TO [facility] RECEIVED CONFIRMATION AND LEFT MSG WITH GENA IN ADM.
--- NOTE | 2020-08-26 17:58 | NUR ---
1330 PATIENT WAS TRANSFERRED FROM [facility]. PT ALERT XS 4 HAS ORDER FOR BLOOD SUGARS. NO PAIN AT TRANSFER. HERE WITH DX OF CELLULITIS. COVID TEST COMPLETED ON AND TAKEN TO LAB NO S/S. PLACEMENT NEEDED IT BEFORE DISCHARGE.
[2020-08-26 21:18] VITALS: BP 146/80
[2020-08-27 05:01] VITALS: BP 143/68
[2020-08-27 07:52] VITALS: BP 140/64
[2020-08-27 08:15] VITALS: BP 140/64
[2020-08-27] MEDS ORDERED: CEFUROXIME250 MG PO (08:29)
[2020-08-27] MEDS ORDERED: NORCO 10-325 T1 EACH PO (08:30)
[2020-08-27] MEDS ORDERED: ENOXAPARIN150 MG/11 SUBQ (08:34)
--- NOTE | 2020-08-27 11:23 | NUR ---
ASSUMED CARE OF PATIENT SHE IS ALERT XS 4 RESTING IN BED TOOK AM PILLS W/O DIFFICULTY. WOUND CARE BY WOUND CARE NURSE THIS AM PT TO DC TO [facility], P/U AT 1300. PT GIVEN FLU VACCINE. DR GRACIELA LEMON DC ORDERS AND WROTE RX'S.
--- NOTE | 2020-08-27 11:52 | NUR ---
REPORT CALLED TO [facility] SPOKE WITH TRACY MARIN. PT'S IV ACSESS DCD. ALL BELONGINGS PACKED TO BE SENT WITH PATIENT. PT GIVEN FLU VACCINE TO RIGHT ARM.WOUND CARE SUPPLIES SENT WITH PATIENT
--- NOTE | 2020-08-27 13:22 | NUR ---
on-going assessment: CM REVIEWED CHART AND SPOKE WITH ATTENDING. PT IS STABLE TO DISCHARGE TO SNF. CM REACHED OUT TO JOANNA AT [facility] WHO REPORTS THEY RECEIVED INSURANCE AUTH AND CAN ACCEPT PT TODAY. CM FAXED D/C ORDERS AND SIGNED SCRIPTS TO [facility] AND CONFIRMED THEY RECEIVED THAT WELL NEGATIVE COVID TEST. CM NOTIFIED PT OF DISCHARGE AND TRANSPORTATION IS ARRANGED FOR 1300. PT AND BEDSIDE RN NOTIFIED. BEDSIDE RN HAS THE NUMBER FOR REPORT. CHART COPY WAS ORDERED. PT REPORTS NO FURTHER NEEDS FROM AT THIS TIME. CASE CLOSED.
--- NOTE | 2020-08-27 13:50 | NUR ---
PATIENT DISCHARGED AT THIS TIME. TRANSPORTAION WITH [facility] HERE TO TRANSPORT THE PATIENT TO [facility]. ALL BELONGINGS SENT WITH PATIENT. PT W/O PAIN OR RESP DISTRESS AT DISCHARGE.
--- NOTE | 2020-09-08 13:20 | O ---
[facility] [place] [address] OPERATIVE REPORT Name: MARISSA RODRIGUEZ Room #: 444-P [facility] IN M.R.#: [id number] Admission: 08/21/20 Attend Phys: Rafael Almaguer MD Discharge: 08/27/20 Date of : 48 Report #: [id number] THIS REPORT FOR: cc: Rafael Almaguer MD, Neal A. MD Kneidel,Destin Jordan MD ~ DATE OF SERVICE: 08/25/2020 PREOPERATIVE DIAGNOSIS: Right foot diabetic ulcer. POSTOPERATIVE DIAGNOSIS: Right foot diabetic ulcer. PROCEDURE: Right foot wound debridement. SURGEON: Dr. Destin Duarte. MEAT SMOKER: Tran Valencia. ANESTHESIA: General. ESTIMATED BLOOD LOSS: 5 mL. DRAINS: No drains. TOURNIQUET TIME: 5 minutes. DESCRIPTION OF PROCEDURE: The patient brought to the operating room where she was placed under general anesthesia. Once under adequate general anesthesia, her right lower extremity was prepped and draped in sterile manner. The extremity was elevated and tourniquet placed at 300 mmHg. Utilizing a 15 blade, the wound was debrided. There was a central eschar 2 cm in diameter, which was removed. There was good bleeding tissue underneath and surrounding this. The wound was debrided to good bleeding tissue. Once complete, the wound was dressed with a wet-to-dry dressing with normal saline solution. There were no complications from the procedure. The patient tolerated the procedure well and went to recovery room without incident. <ELECTRONICALLY SIGNED> By: Destin Duarte MD 09/08/20 1320 1256 1301 Destin Duarte MD /nt
--- NOTE | 2020-09-09 14:43 | HC ---
[facility] [place] [address] CONSULTATION Name: MARISSA RODRIGUEZ Room #: 444-P [facility] IN M.R.#: [id number] Admission: 08/21/20 Attend Phys: Rafael Almaguer MD Discharge: 08/27/20 Date of : 48 Report #: [id number] THIS REPORT FOR: cc: Rafael Almaguer MD, Neal A. MD Smithson,Keith Michel MD ~ DATE OF SERVICE: 08/26/2020 HISTORY OF PRESENT ILLNESS: The patient is a 69-year-old female who had a recent fall at home, was having difficulty caring for herself and is being admitted with bilateral lower extremity DVT and a large heel ulcer the right. She underwent a right foot wound debridement on 08/25/2020. She is limited to nonweightbearing on that right lower extremity to allow time for that wound to heal. She has insulin-dependent diabetes mellitus with bilateral lower extremity peripheral neuropathy. We are seeing her in rehabilitation medicine consultation. PAST MEDICAL HISTORY: Includes insulin-dependent diabetes mellitus. She has a history of exogenous obesity, bilateral lower extremity lymphedema. She has had prior amputation of the right great toe. ALLERGIES: ADHESIVE, PENICILLIN, SULFA AND CODEINE. MEDICATIONS: Please see the full medication listing. REVIEW OF SYSTEMS: No current complaints of chest pain, shortness of breath or abdominal discomfort. SOCIAL HISTORY: In apartment lives alone, premorbid walker ambulator. There are no stairs, although she notes that in the past, there have been times when the elevator has not worked and the stairs are outside. There is an involved cousin that assists her. PHYSICAL EXAMINATION: GENERAL: A 69-year-old white female, pleasant, in no distress. She appears to be a good historian, talkative. VITAL SIGNS: Temperature 97.8, pulse 78, respirations 12, and blood pressure 132/59. She is 5 feet 10 inches, 326 pounds. HEENT: Facies appeared symmetric. EXTREMITIES: She has functional range of motion of both upper extremities without obvious focal weakness. Lower extremity, she does have evidence of lymphedema. Her right heel is dressed. She has significant peripheral neuropathy with inability to assess proprioception at the large toe. She has better assessment of the ankle. She is mod assist, supine to sit. She indicated that she did not feel she could stand without putting some weight on [address] [address] CONSULTATION Name: MARISSA RODRIGUEZ Room #: 444-P [facility] IN ..#: [id number] Admission: 08/21/20 Attend Phys: Rafael Almaguer MD Discharge: 08/27/20 Date of : 48 Report #: [id number] her foot. ASSESSMENT: A 69-year-old white female with the following problem list: 1. Large heel ulcer, right lower extremity, status post right foot wound debridement on 08/25/2020, nonweightbearing. 2. Bilateral lower extremity deep venous thrombosis. 3. Insulin-dependent diabetes mellitus. 4. Exogenous obesity. 5. Bilateral lower extremity lymphedema. PLAN: The patient is not a candidate for an acute [address] [place] [address] inpatient rehabilitation stay. We would recommend skilled level options for ongoing wound care. Therapy will be at a lower level currently with her nonweightbearing status and will likely need to look at sliding board/wheelchair level transfers until allowed weightbearing as tolerated on that right lower extremity. Case management to assist regarding skilled level options for her. Thank you for asking us to assist in this patient's care. <ELECTRONICALLY SIGNED> By: Keith Curtis MD 09/09/20 1443 1203 0454 Keith Curtis MD /nt
== END 2020-08-27 13:48 | DRG 622 ==
LOC: ER 05:18 → EROBS 08:49 → 4W 08:49 → 4S 08-26 16:29
PROVIDERS: Emergency Medicine; ADMIT Family Medicine; ATTEND Family Medicine
PROC: 0JBQ0ZZ Excision of Right Foot Subcutaneous Tissue and Fascia, Open Approach (ICD-10-PCS; principal; 2020-08-25)
DX: E11.621 Type 2 diabetes mellitus with foot ulcer (principal); R65.11 Systemic inflammatory response syndrome (SIRS) of non-infectious origin with acute organ dysfunction; L97.419 Non-pressure chronic ulcer of right heel and midfoot with unspecified severity; R78.81 Bacteremia; N30.01 Acute cystitis with hematuria; E44.0 Moderate protein-calorie malnutrition; Z68.42 Body mass index [BMI] 45.0-49.9, adult; N17.9 Acute kidney failure, unspecified; I10 Essential (primary) hypertension; K21.9 Gastro-esophageal reflux disease without esophagitis; E11.42 Type 2 diabetes mellitus with diabetic polyneuropathy; E03.9 Hypothyroidism, unspecified; E11.65 Type 2 diabetes mellitus with hyperglycemia; I82.413 Acute embolism and thrombosis of femoral vein, bilateral; E66.01 Morbid (severe) obesity due to excess calories; L89.201 Pressure ulcer of unspecified hip, stage 1; I89.0 Lymphedema, not elsewhere classified; I82.453 Acute embolism and thrombosis of peroneal vein, bilateral; I82.433 Acute embolism and thrombosis of popliteal vein, bilateral; E78.5 Hyperlipidemia, unspecified; E11.51 Type 2 diabetes mellitus with diabetic peripheral angiopathy without gangrene; B95.7 Other staphylococcus as the cause of diseases classified elsewhere; I82.443 Acute embolism and thrombosis of tibial vein, bilateral; E11.622 Type 2 diabetes mellitus with other skin ulcer; Z20.822 Contact with and (suspected) exposure to COVID-19; Z79.4 Long term (current) use of insulin; Z86.14 Personal history of Methicillin resistant Staphylococcus aureus infection; Z88.6 Allergy status to analgesic agent; Z88.0 Allergy status to penicillin; Z88.2 Allergy status to sulfonamides; Z88.8 Allergy status to other drugs, medicaments and biological substances; Z89.421 Acquired absence of other right toe(s); Z87.891 Personal history of nicotine dependence; Z79.899 Other long term (current) drug therapy; Z23 Encounter for immunization
CPT/HCPCS: 10040; 10195; 50010; 50101; 50386; 57091; 57180; 62110; 62900; 70005